=== PATIENT | female | born 1995 | race Caucasian/White ===

== ENCOUNTER 2019-04-15 01:12 | Emergency (ER) | payer MEDICAID ==
[~2019-04-15] VITALS: Ht 167.6 cm; Wt 68.2 kg
--- NOTE | 2019-04-15 01:59 | NUR ---
lumbar thoracic xrays taken. pt lying on gurney on left side. officer at bedside. awaiting xray read.
--- NOTE | 2019-04-15 02:17 | NUR ---
Dr. Deluca talking with Pt and officer about xray results, suspicious for vertebral fracture. Pt to CT now. VSS.
[2019-04-15 02:19] VITALS: BP 108/55
--- NOTE | 2019-04-15 03:12 | NUR ---
pt to be placed in [facility] AND THEN MEDICALLY CLEARED FOR [facility].
== END 2019-04-15 03:33 ==
LOC: ER 01:13
DX: S22.089A Unspecified fracture of T11-T12 vertebra, initial encounter for closed fracture (principal); S32.019A Unspecified fracture of first lumbar vertebra, initial encounter for closed fracture; Q76.49 Other congenital malformations of spine, not associated with scoliosis; F12.90 Cannabis use, unspecified, uncomplicated; F10.99 Alcohol use, unspecified with unspecified alcohol-induced disorder; Y90.9 Presence of alcohol in blood, level not specified; V89.2XXA Person injured in unspecified motor-vehicle accident, traffic, initial encounter; Y93.89 Activity, other specified; Y92.89 Other specified places as the place of occurrence of the external cause; Y99.8 Other external cause status
CPT/HCPCS: 70450; 72070; 72100; 72125; 72128; 72131; 99284

== ENCOUNTER 2025-01-08 00:36 | Emergency (ER) | payer MEDICAID ==
[~2025-01-08] VITALS: Ht 170.2 cm; Wt 81.5 kg
[2025-01-08 00:50] VITALS: BP 115/65; PULSE 89; TEMP 97.6; O2SAT 98
--- NOTE | 2025-01-08 03:03 | Physician Documentation ---
History of Present Illness ~ Chief Complaint: Knee Pain Stated Complaint: KNEE PAIN Time Seen by MD: 03:00 Primary Medical Doctor: ALKA VIGIL 29 year old female fell down stairs, sustained injury to R knee. Denies locking/instability but reports medial discoloration and swelling. Tetanus witin 5 years: Yes Medication Reconciliation Allergies: Coded Allergies: No Known Allergies (Unverified , 01/08/25) Past Medical History Past Medical History: No Pertinent History Past Surgical History: other Other Past Surgical History: Kidney Stent Alcohol Use: Occasionally Drug Use: marijuana Review of Systems All Other Systems at this time: Reviewed and Negative Physical Exam Vital Signs: RN Vital Signs have been reviewed: Yes, Temperature: 97.6, Source: Temporal, Heart Rate: 89, Respiratory Rate: 15, BP: 115/65, Pulse Oximetry: 98, Weight: 81.500 Physical Exam HEENT: PERRL, moist oral mucosa, EOMI Pulmonary: No respiratory distress MSK: no deformity; R knee +TTP medially and laterally with discoloration medially no joint laxity noted Skin: w/d/i, no rash Neuro: alert, nonfocal Psych: normal affect Progress Results/Orders Results/Orders Orders - EDILSON HERRMANN MD Knee, Complete (01/08/25 01:06) Completed Orders - EDILSON HERRMANN MD Knee, Complete (01/08/25 01:06) Vital Signs 01/08/25 00:50 Temp 97.6 Pulse 89 Resp 15 B/P (MAP) 115/65 Pulse Ox 98 Medical Decision Making Findings 29 year old female with apparent ligamentous injury of r knee. Xray by my i nterpretation demonstrated no fracture or dislocation, no acute. Counseled, toradol, return precautions. Additional Comment Ddx = sprain, ligamentous injury Departure Disposition: HOME / SELF CARE / HOMELESS Impression: Primary Impression: Effusion of knee Additional Impression: Sprain of knee Condition: Stable Discharge Instructions: Knee Effusion Referrals: NO PRIMARY CARE PROVIDER (PCP) Education Educated: Patient Educated regarding: diagnosis, treatment, prognosis, need for follow up Signature Scribe Signature: . Attestation: EDILSON BURLESON MD Jan 08, 2025 03:03
[2025-01-08 03:09] VITALS: RESP 16
[2025-01-08] MEDS: ketorolac trometh 30MG/ML vial 30 MG/ML VIAL IM ONE (03:09)
--- NOTE | 2025-01-08 04:13 | RADIOLOGY REPORT ---
CLINICAL INDICATION: KNEE PAIN TECHNIQUE: DI KNEE, COMP 4 VW MIN Comparison: None FINDINGS/IMPRESSION: : There is no evidence of acute fracture or dislocation. Small suprapatellar effusion. Soft tissues are otherwise unremarkable.
== END 2025-01-08 03:12 | disposition home or self-care (01) ==
LOC: ER 00:37
DX: S83.8X1A Sprain of other specified parts of right knee, initial encounter (principal); M25.461 Effusion, right knee; W10.9XXA Fall (on) (from) unspecified stairs and steps, initial encounter; Y92.89 Other specified places as the place of occurrence of the external cause; Y93.89 Activity, other specified; Y99.8 Other external cause status
CPT/HCPCS: 73564; 96372; 99283; J1885